=== PATIENT | female | born 1995 | race Caucasian/White ===

== ENCOUNTER 2019-11-01 21:28 | Emergency (ER) | payer SELFPAY ==
[~2019-11-01] VITALS: Ht 157.5 cm; Wt 75.0 kg
--- OUTSIDE RECORDS SUMMARY | 2019-11-01 21:35 | XMS REPORT | Continuity of Care Document ---
Author Organization Unknown Address Unknown Phone Unavailable Allergies There is no data. Medications There is no data. Problems There is no data. Procedures There is no data. Results Test Result Range CBC WITHOUT DIFFERENTIAL - 11/09/15 10:2 7 HEMATOCRIT 45.0 % 34.9-44.5 HEMOGLOBIN 15.0 g/dL 12.0-15.5 MEAN CORPUSCULAR HEMOGLOBIN 29.1 pg 26 .0-34.0 MEAN CORPUSCULAR HEMOGLOBIN CONC 33.3 g/dL 31.0-37.0 MEAN CORPUSCULAR VOLUME 87.2 fL 81.6-9 8.3 PLATELET COUNT 242 10E9/L 150-450 RED BLOOD CELL COUNT 5.16 10E12/L 3.90-5 .03 RED CELL DISTRIBUTION WIDTH 13.3 % 11 .9-15.5 [id number] 6.0 10E9/L 3.5-10.5 TSH (REFLEX FREE T4 IF ABNORMAL) - 11/08 10:27 TSH 0.611 uIU/mL 0.400-4.000 STREP SCREEN CONFIRMATION - 11/25/15 10: 57 [id number] Negative CBC WITH AUTO DIFFERENTIAL - 11/25/15 11 :53 BASOPHILS RELATIVE PERCENT 0.0 % 0.0 -2.5 EOSINOPHILS RELATIVE PERCENT 0.1 % < =5.0 HEMATOCRIT 45.0 % 34.9-44.5 HEMOGLOBIN 14.9 g/dL 12.0-15.5 LYMPHOCYTES RELATIVE PERCENT 6.1 % 2 2.0-49.0 MEAN CORPUSCULAR HEMOGLOBIN 28.9 pg 26 .0-34.0 MEAN CORPUSCULAR HEMOGLOBIN CONC 33.1 g/dL 31.0-37.0 MEAN CORPUSCULAR VOLUME 87.3 fL 81.6-9 8.3 MONOCYTES RELATIVE PERCENT 6.1 % 2.0 -9.0 NEUTROPHILS RELATIVE PERCENT 87.7 % 4 0.0-75.0 PLATELET COUNT 233 10E9/L 150-450 RED BLOOD CELL COUNT 5.16 10E12/L 3.90-5 .03 RED CELL DISTRIBUTION WIDTH 13.3 % 11 .9-15.5 [id number] 22.2 10E9/L 3.5-10.5 [id number] 1.40 10E9/L 0.90-2.90 [id number] 1.40 10E9/L 0.30-0.90 [id number] 0.00 10E9/L 0.05-0.50 [id number] 19.50 10E9/L 1.70-7.00 [id number] 0.00 10E9/L 0.00-0.30 SCAN - 11/25/15 11:53 RBC MORPHOLOGY RBC morphology appears normal [id number] Results confirmed by microscopic exam SUREPATH PAP RFX HPV mRNA E6/E7 - 16:12 CLINICAL INFORMATION: NRG LMP: 05-06-19 NRG PREV. PAP: NRG PREV. 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 Visit Date/Time Discharge Status Pt. Type Provider Facility Loc./Unit Complaint [id number] 10/14/2019 09:40:00 10/14/2019 23:59: 59 CLS Outpatient [facility] [id number] 06/04/2019 12:20:00 Document Registration [id number] 12/09/2015 10:42:21 6 23:59:59 CLS Outpatient SARNAYA ZAYAS [facility] [id number] 11/25/2015 11:39:29 6 23:59:59 CLS Outpatient [facility] [id number] 11/25/2015 10:49:02 6 23:59:59 CLS Outpatient PATI RASMUSSEN [facility] [id number] 11/09/2015 10:00:14 6 23:59:59 CLS Outpatient [facility] LYNDN [id number] 11/05/2015 13:43:47 6 23:59:59 CLS Outpatient PATI RASMUSSEN [facility] MARGARETH
[2019-11-01] MEDS ORDERED: NS IV 1000 ML 1,000 ML IV SCH (21:45)
[2019-11-01] MEDS ORDERED: KETOROLAC 30 MG/ML VIAL IVP ONE (21:45)
--- NOTE | 2019-11-01 21:51 | ED General ---
General Stated Complaint: DEHYDRATION, HEADACHE Source of Information: Patient Exam Limitations: No Limitations History of Present Illness Date Seen by Provider: Nov 01, 2019 Time Seen by Provider: 21:49 Initial Comments To ER with suspected dehydration, she was out swimming and in the sun all day today he only drank 2 bottles of water doesn't believe there was enough. She now has some mild nausea, headache and generally doesn't feel well. No fevers. Timing/Duration: 1-2 Days Severity: Moderate Associated Systoms: Headaches, Nausea/Vomiting Allergies and Home Medications Allergies Coded Allergies: No Known Drug Allergies (Unverified , 11/01/19) Home Medications No Active Prescriptions or Reported Meds Patient Home Medication List Home Medication List Reviewed: Yes Review of Systems Review of Systems Constitutional: see HPI EENTM: see HPI Respiratory: no symptoms reported Cardiovascular: no symptoms reported Genitourinary: no symptoms reported Musculoskeletal: no symptoms reported Skin: no symptoms reported Psychiatric/Neurological: See HPI, Headache Hematologic/Lymphatic: No Symptoms Reported Past Oxruwdo-Irpndy-Uxbpnf Hx Patient Social History Recent Foreign Travel: No (N) Contact w/Someone Who Travel: No Physical Exam Vital Signs Vital Signs - First Documented 11/01/19 21:40 Temp 36.8 Pulse 87 Resp 20 B/P (MAP) 119/78 (92) Pulse Ox 97 O2 Delivery Room Air Capillary Refill : Height, Weight, BMI Height: '" Weight: lbs. oz. kg; BMI Method: General Appearance: No Apparent Distress, WD/WN, Other (sunburnt) Eyes: Bilateral Eye Normal Inspection, Bilateral Eye PERRL, Bilateral Eye EOMI Neck: Full Range of Motion, Normal Inspection Respiratory: No Accessory Muscle Use, No Respiratory Distress Gastrointestinal: Normal Bowel Sounds, Non Tender, Soft Extremity: Normal Capillary Refill, Normal Inspection Neurologic/Psychiatric: Alert, Oriented x3 Skin: Normal Color, Warm/Dry Progress/Results/Core Measures Suspected Sepsis SIRS Temperature: Pulse: Respiratory Rate: Laboratory Tests 11/01/19 21:45: White Blood Count 16.1H Blood Pressure / Mean: Laboratory Tests 11/01/19 21:45: Creatinine 0.76, Platelet Count 213, Total Bilirubin 1.2H Results/Orders Lab Results Laboratory Tests Test 11/01/19 21:45 Range/Units White Blood Count 16.1 H 4.3-11.0 10^3/uL Red Blood Count 4.50 4.35-5.85 10^6/uL Hemoglobin 13.6 11.5-16.0 G/DL Hematocrit 39 35-52 % Mean Corpuscular Volume 88 80-99 FL Mean Corpuscular Hemoglobin 30 25-34 PG Mean Corpuscular Hemoglobin Concent 35 32-36 G/DL Red Cell Distribution Width 12.6 10.0-14.5 % Platelet Count 213 130-400 10^3/uL Mean Platelet Volume 9.8 7.4-10.4 FL Neutrophils (%) (Auto) 85 H 42-75 % Lymphocytes (%) (Auto) 9 L 12-44 % Monocytes (%) (Auto) 5 0-12 % Eosinophils (%) (Auto) 0 0-10 % Basophils (%) (Auto) 0 0-10 % Neutrophils # (Auto) 13.7 H 1.8-7.8 X 10^3 Lymphocytes # (Auto) 1.5 1.0-4.0 X 10^3 Monocytes # (Auto) 0.8 0.0-1.0 X 10^3 Eosinophils # (Auto) 0.1 0.0-0.3 10^3/uL Basophils # (Auto) 0.0 0.0-0.1 10^3/uL Neutrophils % (Manual) 79 % Lymphocytes % (Manual) 10 % Monocytes % (Manual) 6 % Eosinophils % (Manual) 2 % Band Neutrophils 3 % Urine Color YELLOW Urine Clarity CLEAR Urine pH 6.0 5-9 Urine Specific Cedar >=1.030 1.016-1.022 Urine Protein NEGATIVE NEGATIVE Urine Glucose (UA) NEGATIVE NEGATIVE Urine Ketones 1+ H NEGATIVE Urine Nitrite NEGATIVE NEGATIVE Urine Bilirubin NEGATIVE NEGATIVE Urine Urobilinogen 0.2 < = 1.0 MG/DL Urine Leukocyte Esterase NEGATIVE NEGATIVE Urine RBC (Auto) NEGATIVE NEGATIVE Urine RBC RARE /HPF Urine WBC RARE /HPF Urine Squamous Epithelial Cells 2-5 /HPF Urine Crystals NONE /LPF Urine Bacteria TRACE /HPF Urine Casts NONE /LPF Urine Mucus SMALL H /LPF Urine Culture Indicated NO Sodium Level 140 135-145 MMOL/L Potassium Level 3.4 L 3.6-5.0 MMOL/L Chloride Level 106 98-107 MMOL/L Carbon Dioxide Level 21 21-32 MMOL/L Anion Gap 13 5-14 MMOL/L Blood Urea Nitrogen 12 7-18 MG/DL Creatinine 0.76 0.60-1.30 MG/DL Estimat Glomerular Filtration Rate > 60 BUN/Creatinine Ratio 16 Glucose Level 109 H 70-105 MG/DL Calcium Level 9.5 8.5-10.1 MG/DL Corrected Calcium 8.5-10.1 MG/DL Total Bilirubin 1.2 H 0.1-1.0 MG/DL Aspartate Amino Transf (AST/SGOT) 19 5-34 U/L Alanine Aminotransferase (ALT/SGPT) 12 0-55 U/L Alkaline Phosphatase 47 40-136 U/L Total Protein 7.5 6.4-8.2 GM/DL Albumin 4.6 H 3.2-4.5 GM/DL Serum Test, Qualitative NEGATIVE NEGATIVE My Orders Orders - GAIL SPARKS APRN Cbc With Automated Diff (11/01/19 21:37) Comprehensive Metabolic Panel (11/01/19 21:37) Hcg,Qualitative Serum (11/01/19 21:37) Ed Iv/Invasive Line Start (11/01/19 21:37) Ketorolac Injection (Toradol Injection) (11/01/19 21:45) Ns Iv 1000 Ml (Sodium Chloride 0.9%) (11/01/19 21:45) Ondansetron Injection (Zofran Injectio (11/01/19 22:00) Manual Differential (11/01/19 21:45) Medications Given in ED Current Medications Medications Dose Ordered Sig/Nina Route Start Time Stop Time Status Last Admin Dose Admin Ketorolac Tromethamine 15 mg ONCE ONCE IVP 11/01/19 21:45 11/01/19 21:46 DC 11/01/19 21:45 15 MG Ondansetron HCl 4 mg ONCE ONCE IVP 11/01/19 22:00 11/01/19 22:01 DC 11/01/19 22:09 4 MG Vital Signs/I&O 11/01/19 21:40 Temp 36.8 Pulse 87 Resp 20 B/P (MAP) 119/78 (92) Pulse Ox 97 O2 Delivery Room Air Capillary Refill : Departure Communication (Admissions) [id number]-States shes feeling "much better" and ready to go home. Impression Primary Impression: Sunburn Additional Impression: Headache Disposition: HOME, SELF-CARE Condition: Stable Departure-Patient Inst. Decision time for Depature: 22:18 Referrals: [facility] (PCP) Primary Care Physician TORY ENGLISH (Family) Primary Care Physician Patient Instructions: Headache, Adult, Sunburn Add. Discharge Instructions: 1. Drink plenty of fluids 2. Follow-up with your doctor next week for recheck 3. Return to ER for any worsening 4. Scripts No Active Prescriptions or Reported Meds GAIL SPARKS APRN Nov 01, 2019 21:51
[2019-11-01 21:54] LABS: BASOPHILS % (AUTO) 0 % (0-10); EOSINOPHILS # (AUTO) 0.1 10^3/uL (0.0-0.3); EOSINOPHILS % (AUTO) 0 % (0-10); HEMATOCRIT 39 % (35-52); HEMOGLOBIN 13.6 G/DL (11.5-16.0); LYMPHOCYTES # (AUTO) 1.5 X 10^3 (1.0-4.0); LYMPHOCYTES % (AUTO) 9 % (12-44); MEAN CORPUSCULAR HEMOGLOBIN 30 PG (25-34); MEAN CORPUSCULAR HGB CONC 35 G/DL (32-36); MEAN CORPUSCULAR VOLUME 88 FL (80-99); MEAN PLATELET VOLUME 9.8 FL (7.4-10.4); MONOCYTES # (AUTO) 0.8 X 10^3 (0.0-1.0); MONOCYTES % (AUTO) 5 % (0-12); NEUTROPHILS # (AUTO) 13.7 X 10^3 (1.8-7.8); NEUTROPHILS % (AUTO) 85 % (42-75); PLATELET COUNT 213 10^3/uL (130-400); RED CELL DISTRIBUTION WIDTH 12.6 % (10.0-14.5); WHITE BLOOD COUNT 16.1 10^3/uL (4.3-11.0)
[2019-11-01 21:55] LABS: BILIRUBIN,URINE NEGATIVE (NEGATIVE); CLARITY,URINE CLEAR; COLOR,URINE YELLOW; GLUCOSE, URINE (UA) NEGATIVE (NEGATIVE); KETONES,URINE 1+ (NEGATIVE); LEUKOCYTE ESTERASE ,URINE NEGATIVE (NEGATIVE); NITRITE,URINE NEGATIVE (NEGATIVE); PROTEIN,URINE NEGATIVE (NEGATIVE)
[2019-11-01] MEDS ORDERED: ONDANSETRON 4 MG/2 ML (SDV) Z0FRAN IVP ONE (22:00)
[2019-11-01 22:02] LABS: BACTERIA,URINE TRACE /HPF; RBC,URINE RARE /HPF; WBC,URINE RARE /HPF
[2019-11-01 22:03] LABS: ALBUMIN 4.6 GM/DL (3.2-4.5); CHLORIDE 106 MMOL/L (98-107); POTASSIUM 3.4 MMOL/L (3.6-5.0); SODIUM 140 MMOL/L (135-145)
[2019-11-01 22:04] LABS: CALCIUM 9.5 MG/DL (8.5-10.1)
[2019-11-01 22:05] LABS: GLUCOSE 109 MG/DL (70-105); TOTAL PROTEIN 7.5 GM/DL (6.4-8.2)
[2019-11-01 22:06] LABS: CARBON DIOXIDE 21 MMOL/L (21-32)
[2019-11-01 22:07] LABS: BILIRUBIN,TOTAL 1.2 MG/DL (0.1-1.0)
[2019-11-01 22:09] LABS: ALKALINE PHOSPHATASE 47 U/L (40-136); CREATININE SERUM 0.76 MG/DL (0.60-1.30); GFR ESTIMATED > 60
[2019-11-01 22:10] LABS: BUN/CREATININE RATIO 16
[2019-11-01 22:12] LABS: ALANINE AMINOTRANSFERASE 12 U/L (0-55)
[2019-11-01 22:15] LABS: BAND NEUTROPHILS 3 %; EOSINOPHILS % (MANUAL) 2 %; LYMPHOCYTES % (MANUAL) 10 %; MONOCYTES % (MANUAL) 6 %; NEUTROPHILS % (MANUAL) 79 %
[2019-11-01 22:33] VITALS: BP 103/81
== END 2019-11-01 22:33 | disposition home or self-care (01) ==
LOC: ER 21:30
DX: L55.9 Sunburn, unspecified (principal)
CPT/HCPCS: 36415; 80053; 81000; 84703; 85007; 85027